=== PATIENT | female | born 1975 | race Caucasian/White ===

== ENCOUNTER 2016-09-09 01:48 | Emergency (ER) | payer SELFPAY ==
[2016-09-09] MEDS ORDERED: NORMAL SALINE 1000 ML 1,000 ML IV ONE (03:08)
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
[2016-09-09] MEDS ORDERED: ONDANSETRON HCL INJ/PF 4 MG/2 ML SDV IV ONE ×2 (04:20→07:46)
[2016-09-09] MEDS ORDERED: LORAZEPAM INJ 2 MG/1 ML VIAL IV ONE ×2 (04:20→09:32)
[2016-09-09 04:29] LABS: ABSOLUTE BASOPHILS # (AUTO) 0.1 10^3/uL (0.0-0.2); ABSOLUTE EOSINOPHILS # (AUTO) 0.1 10^3/uL (0.0-0.6); ABSOLUTE LYMPHOCYTES (AUTO) 1.7 10^3/uL (0.5-4.7); ABSOLUTE MONOCYTES (AUTO) 0.1 10^3/uL (0.1-1.4); ABSOLUTE NEUT (AUTO) 2.7 10^3/uL (1.7-8.2); BASOPHILS % (AUTO) 1.7 % (0-2); HEMATOCRIT 40.2 % (36.0-47.0); HEMOGLOBIN 13.8 g/dL (12.0-15.5); HGB HCT DIFFERENCE 1.2; LYMPHOCYTES % (AUTO) 35.8 % (13-45); MEAN CORPUSCULAR HEMOGLOBIN 34.4 pg (27.0-33.4); MEAN CORPUSCULAR HGB CONC 34.3 g/dL (32.0-36.0); MEAN CORPUSCULAR VOLUME 100 fl (80-97); MONOCYTES % (AUTO) 3.2 % (3-13); RED CELL DISTRIBUTION WIDTH 15.6 % (11.5-14.0); SEGMENTED NEUTROPHILS % (AUTO) 57.3 % (42-78); WHITE BLOOD COUNT 4.6 10^3/uL (4.0-10.5)
[2016-09-09 04:39] LABS: APPEARANCE,URINE CLOUDY; BILIRUBIN,URINE NEGATIVE (NEGATIVE); GLUCOSE, URINE NEGATIVE (NEGATIVE); KETONES,URINE NEGATIVE (NEGATIVE); LEUKOCYTE ESTERASE,URINE NEGATIVE (NEGATIVE); NITRITE,URINE NEGATIVE (NEGATIVE); PROTEIN,URINE 30 mg/dL (NEGATIVE); URINE SPECIFIC GRAVITY 1.011; UROBILINOGEN,URINE NEGATIVE mg/dL (<2.0)
[2016-09-09 04:43] LABS: ALANINE AMINOTRANSFERASE 98 U/L (9-52); ALBUMIN 3.8 g/dL (3.5-5.0); ALKALINE PHOSPHATASE 68 U/L (38-126); ANION GAP 15 (5-19); ASPARTATE AMINO TRANSFERASE 114 U/L (14-36); BILIRUBIN,TOTAL 0.3 mg/dL (0.2-1.3); BLOOD UREA NITROGEN 7 mg/dL (7-20); CALCIUM 8.7 mg/dL (8.4-10.2); CARBON DIOXIDE 23 mmol/L (22-30); CHLORIDE 108 mmol/L (98-107); CREATININE RESULT 0.54 mg/dL (0.52-1.25); GLUCOSE 104 mg/dL (75-110); POTASSIUM 4.2 mmol/L (3.6-5.0); SODIUM 145.8 mmol/L (137-145); TOTAL PROTEIN 7.3 g/dL (6.3-8.2)
[2016-09-09 04:51] LABS: URINE BARBITURATES SCREEN NEGATIVE; URINE METHADONE SCREEN NEGATIVE; URINE OPIATES LOW NEGATIVE; URINE PHENCYCLIDINE SCREEN NEGATIVE
[2016-09-09 05:11] LABS: ALCOHOL 325 mg/dL (NONE DETECTED)
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
[2016-09-09 11:16] VITALS: BP 135/83
--- NOTE | 2016-09-09 20:07 | EKG REPORT ---
SEVERITY:- NORMAL ECG - SINUS RHYTHM : Confirmed by: Marylou Prince 09-Sep-2016 20:06:52
== END 2016-09-09 11:30 | disposition home or self-care (01) ==
LOC: ER 01:48
DX: F10.120 Alcohol abuse with intoxication, uncomplicated (principal); F32.9 Major depressive disorder, single episode, unspecified; G47.00 Insomnia, unspecified; F41.9 Anxiety disorder, unspecified; R00.0 Tachycardia, unspecified; S80.10XA Contusion of unspecified lower leg, initial encounter; S70.00XA Contusion of unspecified hip, initial encounter; X58.XXXA Exposure to other specified factors, initial encounter; Y92.009 Unspecified place in unspecified non-institutional (private) residence as the place of occurrence of the external cause
CPT/HCPCS: 93005; 96376; 99284; 96361; 96374; 96375; 36415; 80307 ×4; 83690; 84703; 85025; 80053; 81001; 93010; J2060; J2405; J7030

== ENCOUNTER 2016-10-12 15:57 | Emergency (ER) | payer SELFPAY ==
[2016-10-12] MEDS ORDERED: LIDOCAINE 1% INJ-PF (10 MG/ML) 30 ML SDV INJ ONE (16:14)
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
[2016-10-12 17:21] LABS: ABSOLUTE BASOPHILS # (AUTO) 0.1 10^3/uL (0.0-0.2); ABSOLUTE EOSINOPHILS # (AUTO) 0.2 10^3/uL (0.0-0.6); ABSOLUTE LYMPHOCYTES (AUTO) 1.9 10^3/uL (0.5-4.7); ABSOLUTE MONOCYTES (AUTO) 0.3 10^3/uL (0.1-1.4); ABSOLUTE NEUT (AUTO) 2.4 10^3/uL (1.7-8.2); BASOPHILS % (AUTO) 2.2 % (0-2); EOSINOPHILS % (AUTO) 4.9 % (0-6); HEMATOCRIT 44.6 % (36.0-47.0); HGB HCT DIFFERENCE 0.4; LYMPHOCYTES % (AUTO) 38.9 % (13-45); MEAN CORPUSCULAR HEMOGLOBIN 33.9 pg (27.0-33.4); MEAN CORPUSCULAR HGB CONC 33.7 g/dL (32.0-36.0); MEAN CORPUSCULAR VOLUME 101 fl (80-97); MONOCYTES % (AUTO) 5.5 % (3-13); RED BLOOD COUNT 4.43 10^6/uL (3.72-5.28); RED CELL DISTRIBUTION WIDTH 14.8 % (11.5-14.0); SEGMENTED NEUTROPHILS % (AUTO) 48.5 % (42-78); WHITE BLOOD COUNT 4.9 10^3/uL (4.0-10.5)
[2016-10-12 17:41] LABS: ALANINE AMINOTRANSFERASE 49 U/L (9-52); ALBUMIN 3.8 g/dL (3.5-5.0); ALKALINE PHOSPHATASE 26 U/L (38-126); ANION GAP 16 (5-19); ASPARTATE AMINO TRANSFERASE 48 U/L (14-36); BILIRUBIN,DIRECT 0.4 mg/dL (0.0-0.4); BILIRUBIN,TOTAL 0.4 mg/dL (0.2-1.3); BLOOD UREA NITROGEN 5 mg/dL (7-20); CALCIUM 8.8 mg/dL (8.4-10.2); CARBON DIOXIDE 21 mmol/L (22-30); CHLORIDE 118 mmol/L (98-107); CREATININE RESULT 0.56 mg/dL (0.52-1.25); GLUCOSE 89 mg/dL (75-110); LIPASE 334.7 U/L (23-300); POTASSIUM 4.4 mmol/L (3.6-5.0); SODIUM 155.1 mmol/L (137-145); TOTAL PROTEIN 6.6 g/dL (6.3-8.2)
[2016-10-12 17:52] LABS: ALCOHOL 392 mg/dL (NONE DETECTED)
[2016-10-12 18:02] LABS: APPEARANCE,URINE CLEAR; BILIRUBIN,URINE NEGATIVE (NEGATIVE); GLUCOSE, URINE NEGATIVE (NEGATIVE); KETONES,URINE NEGATIVE (NEGATIVE); LEUKOCYTE ESTERASE,URINE NEGATIVE (NEGATIVE); NITRITE,URINE NEGATIVE (NEGATIVE); PROTEIN,URINE NEGATIVE (NEGATIVE); URINE SPECIFIC GRAVITY 1.005; UROBILINOGEN,URINE NEGATIVE mg/dL (<2.0)
[2016-10-12 18:15] LABS: URINE BARBITURATES SCREEN NEGATIVE; URINE METHADONE SCREEN NEGATIVE; URINE OPIATES LOW NEGATIVE; URINE PHENCYCLIDINE SCREEN NEGATIVE
[2016-10-12] MEDS ORDERED: RINGERS SOLUTION,LACTATED 1,000 ML IV ONE (18:52)
[2016-10-12] MEDS ORDERED: DIPH/PERTUSS(ACELL)/TETANUS VAC/PF 0.5 ML SYR (>=10YO) IM ONE (19:11)
[2016-10-12] MEDS ORDERED: NORMAL SALINE 1000 ML 1,000 ML IV ONE ×2 (19:54→22:50)
[2016-10-13 01:08] VITALS: BP 100/73
== END 2016-10-13 00:50 | disposition home or self-care (01) ==
LOC: ER 15:57
PROC: 0HQ5XZZ Repair Chest Skin, External Approach (ICD-10-PCS; principal; 2016-10-12)
DX: S21.012A Laceration without foreign body of left breast, initial encounter (principal); F10.10 Alcohol abuse, uncomplicated; F17.210 Nicotine dependence, cigarettes, uncomplicated; W18.39XA Other fall on same level, initial encounter; Z23 Encounter for immunization
CPT/HCPCS: 99284; 96361; 90471; 96365; 36415; 80307 ×2; 83690; 84703; 85025; 80053; 81001; 71020; 74177; 90715; 12002; J7030; J7120

== ENCOUNTER 2016-10-19 08:19 | Emergency (ER) | payer SELFPAY ==
[2016-10-19] MEDS ORDERED: NORMAL SALINE 1000 ML 1,000 ML IV ONE (09:33)
[2016-10-19] MEDS ORDERED: ONDANSETRON HCL INJ/PF 4 MG/2 ML SDV IV ONE (09:35)
--- NOTE | 2016-10-19 09:35 | ER Document Report ---
ED General - General Chief Complaint: Nausea/Vomiting Stated Complaint: REMOVAL OF STITCHES AND VOMITING Mode of Arrival: Ambulatory Information source: Patient Notes: 41-year-old female presents with 2 separate complaints. Patient initially states she wants her sutures removed, patient fell one week ago striking her chest and multiple sutures placed for a laceration. Patient denies any fever chills, patient also presents with complaints of nausea vomiting. She notes that she is a history of alcohol abuse drank 18 beers 2 days ago and has been vomiting intermittently since with dry heaves today. TRAVEL OUTSIDE OF THE [place].S. IN LAST 30 DAYS: No - HPI Onset: Other - 2 day duration Onset/Duration: Intermittent, Waxing and waning Quality of pain: No pain Severity: Mild Pain Level: Denies Associated symptoms: Nausea, Vomiting Exacerbated by: Denies Relieved by: Denies Similar symptoms previously: Yes Recently seen / treated by doctor: Yes - Related Data Allergies/Adverse Reactions: No Known Allergies Allergy (Verified 10/19/16 08:25) Past Medical History - Social History Smoking Status: Current Every Day Smoker Cigarette use (# per day): Yes Chew tobacco use (# tins/day): No Smoking Education Provided: No Family History: Reviewed & Not Pertinent Patient has suicidal ideation: No Patient has homicidal ideation: No Renal/ Medical History: Denies: Hx Peritoneal Dialysis Past Surgical History: Reports: Hx Section - Immunizations Hx Diphtheria, Pertussis, Tetanus Vaccination: Yes Review of Systems - Review of Systems Notes: REVIEW OF SYSTEMS: CONSTITUTIONAL : Denies fever, chills, or sweats. Denies recent illness. EENT: Denies eye, ear, throat, or mouth pain or symptoms. Denies nasal or sinus congestion or discharge. Denies throat, tongue, or mouth swelling or difficulty swallowing. CARDIOVASCULAR: Denies chest pain. Denies palpitations or racing or irregular heart beat. Denies ankle edema. RESPIRATORY: Denies cough, cold, or chest congestion. Denies shortness of breath, difficulty breathing, or wheezing. GASTROINTESTINAL: Denies abdominal pain or distention. Denies nausea, vomiting , or diarrhea. Denies blood in vomitus, stools, or per rectum. Denies black, tarry stools. Denies constipation. GENITOURINARY: Admits to nausea vomiting FEMALE GENITOURINARY: Denies vaginal bleeding, heavy or abnormal periods, irregular periods. Denies vaginal discharge or odor. MUSCULOSKELETAL: Denies back or neck pain or stiffness. Denies joint pain or swelling. SKIN: Admits laceration sutures HEMATOLOGIC : Denies easy bruising or bleeding. LYMPHATIC: Denies swollen, enlarged glands. NEUROLOGICAL: Denies confusion or altered mental status. Denies passing out or loss of consciousness. Denies dizziness or lightheadedness. Denies headache. Denies weakness or paralysis or loss of use of either side. Denies problems with gait or speech. Denies sensory loss, numbness, or tingling. Denies seizures. PSYCHIATRIC: Denies anxiety or stress. Denies depression, suicidal ideation, or homicidal ideation. ALL OTHER SYSTEMS REVIEWED AND NEGATIVE. Dictation was performed using [email or web address] voice recognition software PHYSICAL EXAMINATION: GENERAL: Well-appearing, well-nourished and in no acute distress. HEAD: Atraumatic, normocephalic. EYES: Pupils equal round and reactive to light, extraocular movements intact, conjunctiva are normal. ENT: Nares patent, oropharynx clear without exudates. Moist mucous membranes. NECK: Normal range of motion, supple without lymphadenopathy LUNGS: Breath sounds clear to auscultation bilaterally and equal. No wheezes rales or rhonchi. HEART: Regular rate and rhythm without murmurs ABDOMEN: Soft, nontender, nondistended abdomen. No guarding, no rebound. No masses appreciated. Female : deferred Musculoskeletal: Normal range of motion, no pitting or edema. No cyanosis. NEUROLOGICAL: Cranial nerves grossly intact. Normal speech, normal gait. Normal sensory, motor exams PSYCH: Normal mood, normal affect. SKIN: Very tanned skin laceration horizontal on midsternal and left chest well healing scab noted Physical Exam - Vital signs Vitals: Temp Pulse Resp BP Pulse Ox 98.3 F 108 H 18 144/95 H 98 10/19/16 08:27 10/19/16 08:27 10/19/16 08:27 10/19/16 08:27 10/19/16 08:27 Course - Re-evaluation Re-evalutation: 10/19/16 09:34 Patient denies any abdominal pain, she'll be given nausea control IV fluids lab work pending sutures will be removed otherwise patient looks well and requests discharge as soon as possible 10/19/16 10:53 Patient's CBC noted no significant abnormalities CMP unfortunately hemolyzed, I offered to redraw the lab work but patient just wishes to be discharged home. She'll be sent home with nausea control has not vomited here does not appear to be withdrawing at this time. 14 sutures removed by nurse After performing a Medical Screening Examination, I estimate there is LOW risk for ACUTE APPENDICITIS, BOWEL OBSTRUCTION, ACUTE CHOLECYSTITIS, PERFORATED DIVERTICULITIS, INCARCERATED HERNIA, PANCREATITIS, PELVIC INFLAMMATORY DISEASE, PERFORATED ULCER, ECTOPIC , or TUBO-OVARIAN ABSCESS, thus I consider the discharge disposition reasonable. Also, there is no evidence or peritonitis , sepsis, or toxicity. I have reevaluated this patient multiple times and no significant life threatening changes are noted. The patient and I have discussed the diagnosis and risks, and we agree with discharging home with close follow-up with the understanding that symptoms and presentations can change. We also discussed returning to the Emergency Department immediately if new or worsening symptoms occur. We have discussed the symptoms which are most concerning (e.g., bloody stool, fever, changing or worsening pain, vomiting) that necessitate immediate return. 10/19/16 10:54 - Vital Signs Vital signs: Temp Pulse Resp BP Pulse Ox 98.3 F 108 H 18 144/95 H 98 10/19/16 08:27 10/19/16 08:27 10/19/16 08:27 10/19/16 08:27 10/19/16 08:27 - Laboratory Result Diagrams: 10/19/16 09:53 10/19/16 09:53 Laboratory results interpreted by me: 10/19/16 09:53 MCV 98 H RDW 14.7 H Discharge - Discharge Clinical Impression: Encounter for removal of sutures Nausea & vomiting Qualifiers: Vomiting type: unspecified Vomiting Intractability: non-intractable Qualified Code(s): R11.2 - Nausea with vomiting, unspecified Condition: Stable Disposition: HOME, SELF-CARE Instructions: Vomiting ([facility]) Additional Instructions: Follow up with your physician tomorrow for further care or return to the ED IMMEDIATELY if symptoms worsen or new concerns occur. If you cannot afford to follow up with your primary care physician a list of low cost clinics have been provided at the end of your discharge papers as well. Prescriptions: Ondansetron [Zofran Odt 4 mg Tablet] 1 - 2 tab PO Q4H PRN #15 tab.rapdis PRN Reason: For Nausea/Vomiting
[2016-10-19 10:32] LABS: ABSOLUTE EOSINOPHILS # (AUTO) 0.1 10^3/uL (0.0-0.6); ABSOLUTE MONOCYTES (AUTO) 0.2 10^3/uL (0.1-1.4); ABSOLUTE NEUT (AUTO) 3.9 10^3/uL (1.7-8.2); BASOPHILS % (AUTO) 0.2 % (0-2); HEMATOCRIT 39.4 % (36.0-47.0); HEMOGLOBIN 13.4 g/dL (12.0-15.5); HGB HCT DIFFERENCE 0.8; MEAN CORPUSCULAR HEMOGLOBIN 33.4 pg (27.0-33.4); MEAN CORPUSCULAR HGB CONC 34.1 g/dL (32.0-36.0); MEAN CORPUSCULAR VOLUME 98 fl (80-97); MONOCYTES % (AUTO) 4.3 % (3-13); RED BLOOD COUNT 4.02 10^6/uL (3.72-5.28); RED CELL DISTRIBUTION WIDTH 14.7 % (11.5-14.0); SEGMENTED NEUTROPHILS % (AUTO) 74.5 % (42-78); WHITE BLOOD COUNT 5.2 10^3/uL (4.0-10.5)
[2016-10-19 11:09] VITALS: BP 143/87
== END 2016-10-19 11:08 | disposition home or self-care (01) ==
LOC: ER 08:19
DX: R11.2 Nausea with vomiting, unspecified (principal); Z48.02 Encounter for removal of sutures; F17.210 Nicotine dependence, cigarettes, uncomplicated
CPT/HCPCS: 99283; 96361; 96374; 36415; 85025; J2405; J7030

== ENCOUNTER 2016-12-31 04:55 | Inpatient (IN) | payer SELFPAY ==
[2016-12-31] MEDS ORDERED: LORAZEPAM INJ 2 MG/1 ML VIAL IV ONE ×4 (05:31→11:15)
[2016-12-31] MEDS ORDERED: NORMAL SALINE 1000 ML 1,000 ML IV ONE (05:32)
[2016-12-31] MEDS ORDERED: LORAZEPAM INJ 2 MG/1 ML VIAL ONE (05:36)
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
[2016-12-31 05:41] LABS: ABSOLUTE BASOPHILS # (AUTO) 0.1 10^3/uL (0.0-0.2); ABSOLUTE EOSINOPHILS # (AUTO) 0.1 10^3/uL (0.0-0.6); ABSOLUTE LYMPHOCYTES (AUTO) 1.7 10^3/uL (0.5-4.7); ABSOLUTE MONOCYTES (AUTO) 0.2 10^3/uL (0.1-1.4); ABSOLUTE NEUT (AUTO) 1.4 10^3/uL (1.7-8.2); BASOPHILS % (AUTO) 2.7 % (0-2); EOSINOPHILS % (AUTO) 2.8 % (0-6); HEMATOCRIT 36.8 % (36.0-47.0); HEMOGLOBIN 12.5 g/dL (12.0-15.5); HGB HCT DIFFERENCE 0.7; LYMPHOCYTES % (AUTO) 48.5 % (13-45); MEAN CORPUSCULAR HEMOGLOBIN 34.2 pg (27.0-33.4); MEAN CORPUSCULAR HGB CONC 33.8 g/dL (32.0-36.0); MEAN CORPUSCULAR VOLUME 101 fl (80-97); MONOCYTES % (AUTO) 5.6 % (3-13); RED BLOOD COUNT 3.65 10^6/uL (3.72-5.28); RED CELL DISTRIBUTION WIDTH 17.7 % (11.5-14.0); SEGMENTED NEUTROPHILS % (AUTO) 40.4 % (42-78); WHITE BLOOD COUNT 3.5 10^3/uL (4.0-10.5)
[2016-12-31 06:08] LABS: ALANINE AMINOTRANSFERASE 144 U/L (9-52); ALBUMIN 4.4 g/dL (3.5-5.0); ALCOHOL 220 mg/dL (NONE DETECTED); ALKALINE PHOSPHATASE 41 U/L (38-126); ANION GAP 16 (5-19); ASPARTATE AMINO TRANSFERASE 273 U/L (14-36); BILIRUBIN,DIRECT 0.4 mg/dL (0.0-0.4); BILIRUBIN,TOTAL 0.8 mg/dL (0.2-1.3); BLOOD UREA NITROGEN 13 mg/dL (7-20); CALCIUM 9.2 mg/dL (8.4-10.2); CARBON DIOXIDE 26 mmol/L (22-30); CHLORIDE 96 mmol/L (98-107); CREATININE RESULT 0.59 mg/dL (0.52-1.25); GLUCOSE 115 mg/dL (75-110); POTASSIUM 4.2 mmol/L (3.6-5.0); TOTAL PROTEIN 7.2 g/dL (6.3-8.2)
[2016-12-31 06:10] LABS: APPEARANCE,URINE SLIGHTLY-CLOUDY; BILIRUBIN,URINE NEGATIVE (NEGATIVE); GLUCOSE, URINE NEGATIVE (NEGATIVE); KETONES,URINE TRACE mg/dL (NEGATIVE); LEUKOCYTE ESTERASE,URINE NEGATIVE (NEGATIVE); NITRITE,URINE NEGATIVE (NEGATIVE); PROTEIN,URINE NEGATIVE (NEGATIVE); URINE SPECIFIC GRAVITY 1.005; UROBILINOGEN,URINE NEGATIVE mg/dL (<2.0)
[2016-12-31 06:18] LABS: URINE BARBITURATES SCREEN NEGATIVE; URINE METHADONE SCREEN NEGATIVE; URINE OPIATES LOW NEGATIVE; URINE PHENCYCLIDINE SCREEN NEGATIVE
--- NOTE | 2016-12-31 08:26 | EKG REPORT ---
SEVERITY:- ABNORMAL ECG - ECTOPIC ATRIAL RHYTHM CONSIDER LEFT VENTRICULAR HYPERTROPHY : Confirmed by: Aston Zuniga MD 31-Dec-2016 08:25:21
--- NOTE | 2016-12-31 09:26 | ER Document Report ---
ED General - General Chief Complaint: Alcohol Withdrawl Stated Complaint: ALCOHOL WITHDRAWLS Time Seen by Provider: 12/31/16 05:35 Mode of Arrival: Medic Information source: Patient Notes: 41-year-old chronic alcoholic who drinks 1 pint a day presents with complaints of alcohol withdrawal. Patient notes she last drank yesterday. Denies any fevers or chills admits to nausea vomiting admits to generalized shakiness and feeling unsteady. Patient also notes that she fell at some point but is not sure 1 complaints of mild rib tenderness on the right TRAVEL OUTSIDE OF THE U.S. IN LAST 30 DAYS: No - HPI Onset: Other Onset/Duration: Intermittent Quality of pain: Achy Severity: Mild Pain Level: 1 Associated symptoms: Weakness Exacerbated by: Denies Relieved by: Denies Similar symptoms previously: Yes Recently seen / treated by doctor: Yes - Related Data Allergies/Adverse Reactions: No Known Allergies Allergy (Verified 10/19/16 08:25) Home Medications: Current Home Medications No Home Medications 12/31/16 [History] Past Medical History - Social History Smoking Status: Current Every Day Smoker Cigarette use (# per day): Yes Chew tobacco use (# tins/day): No Smoking Education Provided: No Frequency of alcohol use: Heavy Drug Abuse: None Family History: Reviewed & Not Pertinent Renal/ Medical History: Denies: Hx Peritoneal Dialysis Past Surgical History: Reports: Hx Section - x3, Hx Cholecystectomy, Hx Tubal Ligation - Immunizations Hx Diphtheria, Pertussis, Tetanus Vaccination: Yes Review of Systems - Review of Systems Notes: REVIEW OF SYSTEMS: CONSTITUTIONAL : Denies fever, chills, or sweats. Denies recent illness. EENT: Denies eye, ear, throat, or mouth pain or symptoms. Denies nasal or sinus congestion or discharge. Denies throat, tongue, or mouth swelling or difficulty swallowing. CARDIOVASCULAR: Denies chest pain. Denies palpitations or racing or irregular heart beat. Denies ankle edema. RESPIRATORY: Denies cough, cold, or chest congestion. Denies shortness of breath, difficulty breathing, or wheezing. GASTROINTESTINAL: Admits nausea vomiting GENITOURINARY: Denies difficulty urinating, painful urination, burning, frequency, blood in urine, or discharge. FEMALE GENITOURINARY: Denies vaginal bleeding, heavy or abnormal periods, irregular periods. Denies vaginal discharge or odor. MUSCULOSKELETAL: Denies back or neck pain or stiffness. Denies joint pain or swelling. SKIN: Denies rash, lesions or sores. HEMATOLOGIC : Denies easy bruising or bleeding. LYMPHATIC: Denies swollen, enlarged glands. NEUROLOGICAL: Admits to shakiness PSYCHIATRIC: Denies anxiety or stress. Denies depression, suicidal ideation, or homicidal ideation. ALL OTHER SYSTEMS REVIEWED AND NEGATIVE. PHYSICAL EXAMINATION: GENERAL: Well-appearing, well-nourished and in no acute distress. HEAD: Atraumatic, normocephalic. EYES: Pupils equal round and reactive to light, extraocular movements intact, conjunctiva are normal. ENT: Nares patent, oropharynx clear without exudates. Moist mucous membranes. NECK: Normal range of motion, supple without lymphadenopathy LUNGS: Breath sounds clear to auscultation bilaterally and equal. No wheezes rales or rhonchi. HEART: Regular rate and rhythm without murmurs ABDOMEN: Soft, nontender, nondistended abdomen. No guarding, no rebound. No masses appreciated. Female : deferred Musculoskeletal: Normal range of motion, no pitting or edema. No cyanosis. NEUROLOGICAL: Cranial nerves grossly intact. Normal speech, normal gait. Normal sensory, motor exams PSYCH: Normal mood, normal affect. SKIN: Admits to contusion to right chest Dictation was performed using [employer] voice recognition software Physical Exam - Vital signs Vitals: Resp Pulse Ox 18 97 12/31/16 05:10 12/31/16 05:10 Course - Re-evaluation Re-evalutation: 12/31/16 09:25 At this point patient does have an alcohol level 220, he is stable was given 2 doses of Ativan 12/31/16 11:49 pt continues ot be tachycardic, hallucinating, will admit for concerns of DT - Vital Signs Vital signs: Temp Pulse Resp BP Pulse Ox 98.8 F 26 H 120/82 95 12/31/16 05:43 12/31/16 09:30 12/31/16 09:06 12/31/16 09:30 - Laboratory Result Diagrams: 12/31/16 05:15 12/31/16 05:15 Laboratory results interpreted by me: 12/31/16 12/31/16 12/31/16 05:15 05:15 05:15 WBC 3.5 L RBC 3.65 L MCV 101 H MCH 34.2 H RDW 17.7 H Plt Count 115 L Seg Neutrophils % 40.4 L Lymphocytes % 48.5 H Basophils % 2.7 H Absolute Neutrophils 1.4 L Chloride 96 L Glucose 115 H AST 273 H ALT 144 H Urine Ketones TRACE H Urine Blood SMALL H Salicylates < 1.0 L Acetaminophen < 10 L - EKG Interpretation by Ut EKG shows normal: Sinus rhythm, [place], Intervals, QRS Complexes Discharge - Discharge Clinical Impression: Alcohol withdrawal delirium Alcohol withdrawal syndrome Qualifiers: Complication of substance-induced condition: with delirium Qualified Code(s): F10.231 - Alcohol dependence with withdrawal delirium Condition: Fair Disposition: ADMITTED OBSERVATION Admitting Provider: Hospitalist Unit Admitted: Telemetry
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
[2016-12-31] MEDS ORDERED: LORAZEPAM 1 MG TABLET PO PRN (14:07)
--- NOTE | 2016-12-31 14:30 | PDOC H&P ---
History of Present Illness Admission Date/PCP: 12/31/16 12:05 Patient complains of: Tremors History of Present Illness: MAGALI CROWLEY is a 41 year old female, with history of alcohol abuse recently moved here from [place] presents to the hospital because of tremors. Patient had history of alcohol withdrawal in the past. The patient reports that she has been sober up until she [place] to engage in binge drinking again. Eventually she started going back to heavy drinking. Yesterday the patient drank heavy and upon waking up this morning patient started to develop nausea and vomiting. There is associated chills but no definite fever. Denies diaphoresis. He complains of lower chest wall pain but he that he denies falling. Patient reports that he bumped his chest intermittently at work. There is no abdominal pain. There is no shortness of breath. No diarrhea nor sinus congestion or sore throat nor any dysuria urgency or frequency no vaginal discharge. In the emergency room the patient was given multiple doses of Ativan due to tremors. Patient started to develop confusion and was referred for admission. Past Medical History Past Medical History: Patient denies any current medical illness or chronic medical illness Past Surgical History Past Surgical History: Reports: Section - x3, Cholecystectomy, Tubal Ligation Social History Information Source: Patient Smoking Status: Current Every Day Smoker Frequency of Alcohol Use: Heavy Hx Recreational Drug Use: No Drugs: None Family History Family History: CAD, DM, Malignancy - Breast Parental Family History Reviewed: Yes Children Family History Reviewed: Yes Sibling(s) Family History Reviewed.: Yes Medication/Allergy Home Medications: No Home Medications 12/31/16 Allergies/Adverse Reactions: No Known Allergies Allergy (Verified 10/19/16 08:25) Review of Systems Constitutional: PRESENT: chills, weakness - Generalized. ABSENT: fever(s), headache(s), night sweats, weight gain, weight loss Eyes: ABSENT: visual disturbances Ears: ABSENT: hearing changes Nose, Mouth, and Throat: ABSENT: mouth pain, sore throat Cardiovascular: ABSENT: chest pain, dyspnea on exertion, edema, orthropnea, palpitations Respiratory: PRESENT: cough - Occasional. ABSENT: hemoptysis, sputum Gastrointestinal: ABSENT: abdominal pain, constipation, diarrhea, hematemesis, hematochezia, melena, nausea, vomiting Genitourinary: ABSENT: difficulty urinating, dysuria, hematuria Musculoskeletal: PRESENT: other - Pain on the lower rib cage on the left. ABSENT: joint swelling Integumentary: ABSENT: pruritus, rash, wounds Neurological: ABSENT: abnormal gait, abnormal speech, confusion, dizziness, focal weakness, syncope Psychiatric: ABSENT: anxiety, depression, homidical ideation, suicidal ideation Endocrine: ABSENT: cold intolerance, heat intolerance, polydipsia, polyuria Hematologic/Lymphatic: ABSENT: easy bleeding, easy bruising Physical Exam Vital Signs: Temp Pulse Resp BP Pulse Ox 98.8 F 18 134/92 H 95 12/31/16 05:43 12/31/16 12:15 12/31/16 12:01 12/31/16 12:15 General appearance: PRESENT: no acute distress, cooperative, thin Head exam: PRESENT: atraumatic, normocephalic Eye exam: PRESENT: conjunctiva pink, EOMI, PERRLA. ABSENT: scleral icterus Ear exam: PRESENT: normal external ear exam Mouth exam: PRESENT: moist, neck supple, tongue midline Throat exam: ABSENT: post pharyngeal erythema, tonsillar erythema Neck exam: ABSENT: carotid bruit, JVD, lymphadenopathy, thyromegaly Respiratory exam: PRESENT: clear to auscultation tara. ABSENT: rales, rhonchi, wheezes Cardiovascular exam: PRESENT: RRR. ABSENT: diastolic murmur, rubs, systolic murmur Pulses: PRESENT: normal dorsalis pedis pul Vascular exam: PRESENT: normal capillary refill GI/Abdominal exam: PRESENT: hypoactive bowel sounds, soft. ABSENT: distended, guarding, mass, organolmegaly, rebound, tenderness Rectal exam: PRESENT: deferred Extremities exam: PRESENT: full ROM. ABSENT: calf tenderness, clubbing, pedal edema Musculoskeletal exam: PRESENT: tenderness - On the lower rib cage. Neurological exam: PRESENT: alert, awake, oriented to person, oriented to place , oriented to time, oriented to situation, other - Mild tremors Psychiatric exam: PRESENT: appropriate affect, normal mood. ABSENT: homicidal ideation, suicidal ideation Skin exam: PRESENT: dry, intact, warm. ABSENT: cyanosis, rash Assessment & Plan - Diagnosis (1) Alcohol withdrawal Qualifiers: Complication of substance-induced condition: with unspecified complication Qualified Code(s): F10.239 - Alcohol dependence with withdrawal, unspecified Is this a current diagnosis for this admission?: Yes (2) Transaminitis Is this a current diagnosis for this admission?: Yes (3) Thrombocytopenia Is this a current diagnosis for this admission?: Yes (4) Rib pain on left side Is this a current diagnosis for this admission?: Yes - Time Time Spent: 50 to 70 Minutes - Inpatient Certification Based on my medical assessment, after consideration of the patient's comorbidities, presenting symptoms, or acuity I expect that the services needed warrant INPATIENT care.: Yes I certify that my determination is in accordance with my understanding of Medicare's requirements for reasonable and necessary INPATIENT services [42 CFR 412.3e].: Yes Medical Necessity: Need Close Monitoring Due to Risk of Patient Decompensation, Need For IV Fluids, Need For Continuous Telemetry Monitoring, Risk of Complication if Not Cared For in Hospital 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 We are going to start the patient on intravenous fluid hydration, scheduled Ativan orally, and as needed intravenous Ativan for agitation. We will give supplemental thiamine, folic acid and multivitamin. I will put the patient on a sitter. We will monitor platelet count as well as liver function tests. We will obtain x-ray of the left rib cage. DVT prophylaxis with Lovenox will be placed. Further testing depends on the initial evaluation and response to treatment as outlined above.
--- NOTE | 2016-12-31 15:18 | RADIOLOGY REPORT (SQ) ---
EXAM DESCRIPTION: RIBS LEFT W/PA CHEST COMPLETED DATE/TIME: 12/31/2016 3:07 pm REASON FOR STUDY: rib pain COMPARISON: None. TECHNIQUE: Frontal view of the chest and additional views of the left ribs acquired. NUMBER OF VIEWS: Four view. LIMITATIONS: None. FINDINGS: FRONTAL CXR: No pneumothorax. No pleural effusion. No atelectasis or infiltrates. RIBS: Nondisplaced fracture of lateral 8th rib. OTHER: No other significant finding. IMPRESSION: Nondisplaced fracture left lateral 8th rib. COMMENT: SITE OF TRAUMA/COMPLAINT MARKED/STAMP COMPLETED: YES. TECHNICAL DOCUMENTATION: JOB ID: [id number] [employer]- All Rights Reserved
[2016-12-31] MEDS: LORAZEPAM INJ 2 MG/1 ML VIAL IV PRN ×2 (17:38→22:16)
[2016-12-31] MEDS: DOCUSATE SODIUM 100 MG CAPSULE PO SCH (17:38)
[2016-12-31] MEDS ORDERED: NORMAL SALINE 1000 ML 1,000 ML with THIAMINE HCL 100 MG, MVI, ADULT NO.1 WITH VIT K 10 ... IV PRN ×4 (18:00)
[2016-12-31] MEDS ORDERED: NORMAL SALINE 1000 ML 1,000 ML with POTASSIUM CHLORIDE 20 MEQ, MAGNESIUM SULFATE 8 MEQ,... IV SCH ×5 (18:00)
[2016-12-31] MEDS: ONDANSETRON HCL INJ/PF 4 MG/2 ML SDV IV PRN (20:29)
[2017-01-01] MEDS: NORMAL SALINE 1000 ML 1,000 ML IV PRN ×2 (02:45→13:07)
[2017-01-01] MEDS: LORAZEPAM INJ 2 MG/1 ML VIAL IV PRN ×5 (02:46→21:00)
[2017-01-01] MEDS: LANSOPRAZOLE 30 MG TAB.RAP.DR PO SCH (05:29)
[2017-01-01 05:32] LABS: ALANINE AMINOTRANSFERASE 84 U/L (9-52); ALBUMIN 3.3 g/dL (3.5-5.0); ALKALINE PHOSPHATASE 29 U/L (38-126); ANION GAP 9 (5-19); ASPARTATE AMINO TRANSFERASE 111 U/L (14-36); BILIRUBIN,DIRECT 0.3 mg/dL (0.0-0.4); BILIRUBIN,TOTAL 1.1 mg/dL (0.2-1.3); BLOOD UREA NITROGEN 8 mg/dL (7-20); CALCIUM 8.3 mg/dL (8.4-10.2); CARBON DIOXIDE 25 mmol/L (22-30); CHLORIDE 104 mmol/L (98-107); CREATININE RESULT 0.53 mg/dL (0.52-1.25); GLUCOSE 97 mg/dL (75-110); MAGNESIUM 1.4 mg/dL (1.6-2.3); PHOSPHORUS 4.5 mg/dL (2.5-4.5); POTASSIUM 3.6 mmol/L (3.6-5.0); SODIUM 137.9 mmol/L (137-145); TOTAL PROTEIN 5.8 g/dL (6.3-8.2)
[2017-01-01 05:37] LABS: HEMATOCRIT 32.8 % (36.0-47.0); HEMOGLOBIN 11.1 g/dL (12.0-15.5); HGB HCT DIFFERENCE 0.5; MEAN CORPUSCULAR HEMOGLOBIN 34.2 pg (27.0-33.4); MEAN CORPUSCULAR HGB CONC 33.8 g/dL (32.0-36.0); MEAN CORPUSCULAR VOLUME 101 fl (80-97); RED BLOOD COUNT 3.24 10^6/uL (3.72-5.28); RED CELL DISTRIBUTION WIDTH 16.9 % (11.5-14.0)
[2017-01-01 05:39] LABS: WHITE BLOOD COUNT 2.2 10^3/uL (4.0-10.5)
--- NOTE | 2017-01-01 08:26 | RADIOLOGY REPORT (SQ) ---
EXAM DESCRIPTION: CHEST SINGLE VIEW COMPLETED DATE/TIME: 01/01/2017 8:10 am REASON FOR STUDY: cough, rib pain COMPARISON: 10/12/2016. NUMBER OF VIEWS: One view. TECHNIQUE: Single frontal radiographic view of the chest acquired. LIMITATIONS: None. FINDINGS: LUNGS AND PLEURA: No opacities, masses or pneumothorax. No pleural effusion. MEDIASTINUM AND HILAR STRUCTURES: No masses. Contour normal. HEART AND VASCULAR STRUCTURES: Heart normal in size. Normal vasculature. BONES: No acute findings. HARDWARE: None in the chest. OTHER: No other significant finding. IMPRESSION: NO SIGNIFICANT RADIOGRAPHIC FINDING IN THE CHEST. TECHNICAL DOCUMENTATION: JOB ID: [id number] [employer]- All Rights Reserved
[2017-01-01] MEDS ORDERED: ENOXAPARIN SODIUM INJ 40 MG/0.4 ML DISP.SYRIN SUBCUT SCH (10:00)
[2017-01-01] MEDS: DOCUSATE SODIUM 100 MG CAPSULE PO SCH ×2 (10:24→19:09)
--- NOTE | 2017-01-01 13:01 | PDOC PROGRESS REPORT ---
Subjective Progress Note for:: 01/01/17 Subjective:: Complains of pain over her ribs Physical Exam Vital Signs: Temp Pulse Resp BP Pulse Ox 98.1 F 80 16 144/95 H 100 01/01/17 11:04 01/01/17 11:04 01/01/17 11:04 01/01/17 11:04 01/01/17 11:04 Intake & Output 12/31/16 01/01/17 01/02/17 06:59 06:59 06:59 Intake Total 3424 Balance 3424 Weight 59.9 kg General appearance: PRESENT: no acute distress Eye exam: PRESENT: conjunctiva pink. ABSENT: scleral icterus Mouth exam: PRESENT: moist, tongue midline Neck exam: ABSENT: JVD Respiratory exam: PRESENT: chest wall tenderness, clear to auscultation tara. ABSENT: rales, rhonchi, wheezes Cardiovascular exam: PRESENT: RRR. ABSENT: diastolic murmur, rubs, systolic murmur GI/Abdominal exam: PRESENT: normal bowel sounds, soft. ABSENT: distended, guarding, mass, organolmegaly, rebound, tenderness Extremities exam: PRESENT: full ROM. ABSENT: calf tenderness, clubbing, pedal edema Neurological exam: PRESENT: alert, awake, oriented to person, oriented to place , oriented to time, oriented to situation, CN II-XII grossly intact. ABSENT: motor sensory deficit Psychiatric exam: PRESENT: anxious Skin exam: PRESENT: other - Area of bruising on the left ribs Results Laboratory Results: 01/01/17 04:03 01/01/17 04:03 01/01/17 01/01/17 04:03 04:03 WBC 2.2 L D RBC 3.24 L Hgb 11.1 L Hct 32.8 L MCV 101 H MCH 34.2 H MCHC 33.8 RDW 16.9 H Plt Count 71 L Sodium 137.9 Potassium 3.6 Chloride 104 Carbon Dioxide 25 Anion Gap 9 BUN 8 Creatinine 0.53 Est GFR ( Amer) > 60 Est GFR (Non-Af Amer) > 60 Glucose 97 Calcium 8.3 L Phosphorus 4.5 Magnesium 1.4 L Total Bilirubin 1.1 AST 111 H ALT 84 H Alkaline Phosphatase 29 L Total Protein 5.8 L Albumin 3.3 L Impressions: Ribs w/Chest X-Ray 12/31/16 00:00 IMPRESSION: Nondisplaced fracture left lateral 8th rib. Chest X-Ray 01/01/17 06:00 IMPRESSION: NO SIGNIFICANT RADIOGRAPHIC FINDING IN THE CHEST. Assessment & Plan - Diagnosis (1) Alcohol withdrawal Qualifiers: Complication of substance-induced condition: with unspecified complication Qualified Code(s): F10.239 - Alcohol dependence with withdrawal, unspecified Is this a current diagnosis for this admission?: YesPlan: Continue with Ativan as needed (2) Rib pain on left side Is this a current diagnosis for this admission?: YesPlan: Give tramadol (3) Thrombocytopenia Is this a current diagnosis for this admission?: YesPlan: Most likely secondary to alcohol use (4) Transaminitis Is this a current diagnosis for this admission?: YesPlan: Secondary to alcohol abuse (5) Leukopenia Is this a current diagnosis for this admission?: YesPlan: Probably secondary to alcohol use - Time Time Spent with patient: 25-34 minutes - Inpatient Certification Medical Necessity: Need Close Monitoring Due to Risk of Patient Decompensation
[2017-01-01] MEDS: TRAMADOL HCL 50 MG TABLET PO PRN ×2 (15:16→21:00)
[2017-01-01] MEDS ORDERED: [UNRECOGNIZED DRUG - REMARK] IV ONE ×4 (18:00)
[2017-01-01] MEDS: ONDANSETRON HCL INJ/PF 4 MG/2 ML SDV IV PRN (21:00)
[2017-01-02] MEDS: LORAZEPAM INJ 2 MG/1 ML VIAL IV PRN ×3 (01:24→09:28)
[2017-01-02] MEDS: ONDANSETRON HCL INJ/PF 4 MG/2 ML SDV IV PRN ×3 (01:24→09:39)
[2017-01-02 04:43] LABS: ABSOLUTE EOSINOPHILS # (AUTO) 0.1 10^3/uL (0.0-0.6); ABSOLUTE LYMPHOCYTES (AUTO) 1.4 10^3/uL (0.5-4.7); ABSOLUTE MONOCYTES (AUTO) 0.1 10^3/uL (0.1-1.4); ABSOLUTE NEUT (AUTO) 1.6 10^3/uL (1.7-8.2); BASOPHILS % (AUTO) 1.3 % (0-2); EOSINOPHILS % (AUTO) 3.7 % (0-6); HEMATOCRIT 36.4 % (36.0-47.0); HEMOGLOBIN 12.2 g/dL (12.0-15.5); HGB HCT DIFFERENCE 0.2; LYMPHOCYTES % (AUTO) 41.7 % (13-45); MEAN CORPUSCULAR HEMOGLOBIN 34.2 pg (27.0-33.4); MEAN CORPUSCULAR HGB CONC 33.5 g/dL (32.0-36.0); MEAN CORPUSCULAR VOLUME 102 fl (80-97); RED BLOOD COUNT 3.56 10^6/uL (3.72-5.28); SEGMENTED NEUTROPHILS % (AUTO) 49.3 % (42-78); WHITE BLOOD COUNT 3.3 10^3/uL (4.0-10.5)
[2017-01-02] MEDS: TRAMADOL HCL 50 MG TABLET PO PRN (04:45)
[2017-01-02 04:54] LABS: ALANINE AMINOTRANSFERASE 101 U/L (9-52); ALBUMIN 4.1 g/dL (3.5-5.0); ALKALINE PHOSPHATASE 36 U/L (38-126); ANION GAP 10 (5-19); ASPARTATE AMINO TRANSFERASE 102 U/L (14-36); BILIRUBIN,DIRECT 0.3 mg/dL (0.0-0.4); BILIRUBIN,TOTAL 0.8 mg/dL (0.2-1.3); BLOOD UREA NITROGEN 7 mg/dL (7-20); CALCIUM 9.6 mg/dL (8.4-10.2); CARBON DIOXIDE 27 mmol/L (22-30); CHLORIDE 100 mmol/L (98-107); CREATININE RESULT 0.49 mg/dL (0.52-1.25); GLUCOSE 98 mg/dL (75-110); SODIUM 137.4 mmol/L (137-145); TOTAL PROTEIN 7.1 g/dL (6.3-8.2)
[2017-01-02] MEDS: LANSOPRAZOLE 30 MG TAB.RAP.DR PO SCH (05:18)
[2017-01-02] MEDS: NORMAL SALINE 1000 ML 1,000 ML IV PRN (06:09)
[2017-01-02 07:26] VITALS: BP 143/99
[2017-01-02] MEDS: DOCUSATE SODIUM 100 MG CAPSULE PO SCH (09:27)
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
== END 2017-01-02 11:45 | disposition home or self-care (01) | DRG 897 ==
LOC: ER 04:55 → EH 12:05 → OBSVTOIN 14:09 → 3N 16:15
PROVIDERS: ADMIT Family Medicine; ATTEND Family Medicine
DX: F10.231 Alcohol dependence with withdrawal delirium (principal); F10.229 Alcohol dependence with intoxication, unspecified; Y90.8 Blood alcohol level of 240 mg/100 ml or more; F17.210 Nicotine dependence, cigarettes, uncomplicated; D69.59 Other secondary thrombocytopenia; R74.0 Nonspecific elevation of levels of transaminase and lactic acid dehydrogenase [LDH]; D72.818 Other decreased white blood cell count; R07.81 Pleurodynia; Z90.49 Acquired absence of other specified parts of digestive tract; Z98.51 Tubal ligation status; Z91.410 Personal history of adult physical and sexual abuse
CPT/HCPCS: 36415; 71010; 80048; 80053; 80076; 80307; 81001; 81025; 83735; 84100; 85025; 85027; 93005; 93010; 96374; 96376; 99285; J2060; J2405; J3411; J3490; J7030